=== PATIENT | female | born 1985 | race Caucasian/White ===

== ENCOUNTER 2025-04-20 02:15 | Observation (INO) | payer SELFPAY ==
[2025-04-20] VITALS (10 sets, daily range): BP systolic 97–162; BP diastolic 53–105; PULSE 60–122; RESP 15–20; TEMP 36.6–37.1; O2SAT 96–100; BMI 29.2
--- OUTSIDE RECORDS SUMMARY | 2025-04-20 02:22 | XMS_ITS | Encounter Summary ---
Author Organization Healthcare Address [address] [place] [address] Care Team Providers Care Capacitor Repairer Name Role Phone Jas Egan Primary Care Provider [phone] Shefali Miller APRN Primary Care Provider Araceli Abdi Unavailable Unavailable Debbi Gómez ICING COATER Unavailable Unavailable Summer Willis DO Primary Care Provider [phone] Encounter Details Date Type Department Care Team (Late st Contact Info) Description 12/05/2022 Community [facility] [address] [place] [address] Dany Osorio, SEA CAPTAIN [address] [place] [address] Amenorrhea (Primary Dx) Social History Tobacco Use Types Packs/Day Years Used Date Smoking Tobacco: Former Cigarettes Smokeless Tobacco: Never Alcohol Use Standard Drinks/Week Comments Yes 0 (1 standard drink = 0.6 oz pur e alcohol) socially CAGE ASSESSMENT Answer Date Recorded Cage unable to access Not on file 10/10/2022 Maximum number of drinks you had on a given occasion in the last month? 0 drinks 10/10/2022 How many alcoholic Beverages do you typically drink in a week? 0 - 7 per week 10/10/2022 Have you ever felt you should CUT down on your d rinking? 0 10/10/2022 Have you been ANNOYED by peo ple criticizing your drinking? 0 10/10/2022 Have you felt GUILTY about your drinking? 0 10/10/2022 Have you had a drink first t opal in the morning (EYE-OUTSOLE ROUNDER) to steady your nerves or to get rid of a hangover? 0 10/10/2022 CAGE Questionnaire Score 0 023 Comments Unknown Sex and Gender Information Value Date Recorded Sex Assigned at Not on file Legal Sex Female 8:21 PM EDT Gender Identity Not on file Sexual Orientation Not on file documented as of this encounter Plan of Treatment Not on file documented as of this encounter Visit Diagnoses Diagnosis Amenorrhea- Primary Absence of menstruation documented in this encounter Care Teams Capacitor Repairer Relationship Specialty Start Date End Date Jas Egan PA [address] [place] [address] PCP - General 12/06/22 07/28/24 Shefali Miller APRN [address] [place] [address] PCP - General Family Medicine 07/29/24 04/15/25 Summer Willis DO [address] [place] [address] PCP - General Family Medicine 04/16/25 05/18/25 Araceli Abdi Community Health Worker 07/29/2408/08 Debbi Gómez, [place] [address] Cocoa Mill Operator Electric Screw Driver Operator 07/01/23 12/28/24 documented as of this encounter
--- OUTSIDE RECORDS SUMMARY | 2025-04-20 02:22 | XMS_ITS | Encounter Summary ---
Author Organization Healthcare Address [address] [place] [address] Care Team Providers Care Nail Technician Name Role Phone Jas Egan Primary Care Provider Shefali Miller APRN Primary Care Provider Araceli Abdi Unavailable Unavailable Debbi GómezW Unavailable Unavailable Summer Willis DO Primary Care Provider [phone] Encounter Details Date Type Department Care Team (Late st Contact Info) Description 07/19/2022 Lab Requisition [facility] [address] [place] [address] Ryan Mason PA [address] [place] [address] Encounter for screening for COVID-19 Social History Tobacco Use Types Packs/Day Years Used Date Smoking Tobacco: Former Cigarettes Smokeless Tobacco: Never Alcohol Use Standard Drinks/Week Comments Yes 0 (1 standard drink = 0.6 oz pur e alcohol) socially Comments Unknown Sex and Gender Information Value Date Recorded Sex Assigned at Not on file Legal Sex Female 8:21 PM EDT Gender Identity Not on file Sexual Orientation Not on file COVID-19 Exposure Response Date Recorded In the last 10 days, have yo u been in contact with someone who was confirmed or suspected to have Coronavirus/COVID-19? No / Unsure 07/18/2022 4:30 AM EDT documented as of this encounter Plan of Treatment Not on file documented as of this encounter Procedures Procedure Name Priority Date/Time Associated Diagnosis Comments SARS COV-2/COVID-19 BY PCR - RAPID Routine 07/19/2022 4:50 PM EDT Encounter for screening for COVID-19 documented in this encounter Results * SARS CoV-2/COVID-19 by PCR - Rapid (07/19/2022 4:50 PM EDT) SARS CoV-2/COVID-1 9 RNA PCR Result Not Detected Not Detected 07/19/2022 9:06 PM EDT [facility] Swab Nasopharyngeal structure / Unknown 07/19/2022 4:50 PM EDT 07/19/2022 7:58 PM EDT Narrative [facility] - 07/19/2022 9:06 PM EDT This assay is for in vitro diagnostic use under FDA emergency use authorization only. Negative results do not preclude infection with the SARS CoV-2 virus and should not be the sole basis of a patient treatment/management or public health decision. Follow up testing should be performed according to the current CDC recommendations. This test was performed on the Xpert Xpress SARS CoV-2 test, a PCR-based method. Negative results should be considered presumptive and do not preclude current or future infection obtained through community transmission or other exposures. Negative results must be considered in the context of an individual's recent exposures, history, presence of clinical signs and symptoms consistent with COVID-19. [facility] MICROBIOLOGY - GENERAL ORDERABLES Final Result [facility] [address] [place] [address] documented in this encounter Visit Diagnoses Diagnosis Encounter for screening for COVID-19 documented in this encounter Care Teams Nail Technician Relationship Specialty Start Date End Date Jas Egan PA [address] [place] [address] PCP - General 12/06/22 07/28/24 Shefali Miller APRN [address] [place] [address] PCP - General Family Medicine 07/29/24 04/15/25 Summer Willis DO [address] [place] [address] PCP - General Family Medicine 04/16/25 05/18/25 Araceli Abdi Community Health Worker 07/29/2408/08 Debbi Gómez, [place] [address] Director Of Accounting Solder Cream Maker 07/01/23 12/28/24 documented as of this encounter
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
--- OUTSIDE RECORDS SUMMARY | 2025-04-20 02:22 | XMS_ITS | Encounter Summary ---
Author Organization Healthcare Address [address] [place] [address] Care Team Providers Care Golf Club Manager Name Role Phone Jas Egan Primary Care Provider [phone] Shefali Miller APRN Primary Care Provider Araceli Abdi Unavailable Unavailable Debbi GómezW Unavailable Unavailable Summer Willis DO Primary Care Provider [phone] Encounter Details Date Type Department Care Team (Late st Contact Info) Description 08/15/2022 Lab Requisition [facility] [address] [place] [id number] Atul Sanders DO [address] [place] [address] Routine general medical examination at a health care facility Social History Tobacco Use Types Packs/Day Years [...] as of this encounter Visit Diagnoses Diagnosis Routine general medical examination at a health care facility documented in this encounter Care Teams Golf Club Manager Relationship Specialty Start Date End Date Jas Egan PA [address] [place] [address] PCP - General 12/06/22 07/28/24 Shefali Millre APRN [address] [place] [address] PCP - General Family Medicine 07/29/24 04/15/25 Summer Willis DO [address] [place] [address] PCP - General Family Medicine 04/16/25 05/18/25 Araceli Abdi Community Health Worker 07/29/2408/08 Debbi Gómez, [place] [address] Histotechnologist Housekeeper Home 07/01/23 12/28/24 documented as of this encounter
--- OUTSIDE RECORDS SUMMARY | 2025-04-20 02:22 | XMS_ITS | Encounter Summary ---
Author Organization Healthcare Address [address] [place] [address] Care Team Providers Care Machine Engraver Name Role Phone Jas Egan Primary Care Provider [phone] Shefali Miller APRN Primary Care Provider Araceli Abdi Unavailable Unavailable Debbi GómezW Unavailable Unavailable Summer Willis DO Primary Care Provider [phone] Encounter Details Date Type Department Care Team (Late st Contact Info) Description 07/20/2022 Lab Requisition [facility] [address] [place] [id number] Efraín Tristan MD [address] [place] [address] Routine general medical examination at a health [...] Procedure Name Priority Date/Time Associated Diagnosis Comments HC RPR WITH REFLEX TO QUANT RPR AND CONFIRMATORY TREPONEMA PALLIDUM ABS(SO) Routine 07/20/2022 8:02 AM EDT Routine general medical examination at a health care facility [ICD-10-CM] HC (REFLEX) RPR ([facility] [id number]) Routine 07/20/2022 8:02 AM EDT Routine general medical examination at a health care facility [ICD-10-CM] HC TREPONEMA PALLIDIUM SCREEN CASACADE ([facility] [id number]) Routine 07/20/2022 8:02 AM EDT Routine general medical examination at a health care facility [ICD-10-CM] HEPATITIS C VIRUS (HCV) QUANTITATIVE PCR Routine 07/20/2022 8:02 AM EDT Routine general medical examination at a health care facility [ICD-10-CM] HIV 1/2 ANTIBODY/ANTIGEN SCREEN WITH REFLEX TO HIV I/II DIFFERENTIATION Routine 07/20/2022 8:02 AM EDT Routine general medical examination at a health care facility [ICD-10-CM] ACUTE HEPATITIS PANEL Routine 07/20/2022 8:02 AM EDT Routine general medical examination at a health care facility [ICD-10-CM] CBC WITH AUTO DIFFERENTIAL Routine 07/20/2022 8:02 AM EDT Routine general medical examination at a health care facility [ICD-10-CM] C-REACTIVE PROTEIN, PLASMA Routine 07/20/2022 8:02 AM EDT Routine general medical examination at a health care facility [ICD-10-CM] HEMOGLOBIN A1C Routine 07/20/2022 8:02 AM EDT Routine general medical examination at a health care facility [ICD-10-CM] LIPID PROFILE, PLASMA Routine 07/20/2022 8:02 AM EDT Routine general medical examination at a health care facility [ICD-10-CM] COMPREHENSIVE METABOLIC PANEL, PLASMA Routine 07/20/2022 8:02 AM EDT Routine general medical examination at a health care facility [ICD-10-CM] documented in this encounter Results * (ABNORMAL) RPR, Quant (Reflex) (07/20/2022 8:02 AM EDT) RPR, QUANT 1:32(H) NonRea<1:1 07/23/2022 7:08 AM EDT [facility] (BEAKER) Blood Venous blood specimen / Unknown Venipuncture / Unknown 07/20/2022 8:02 AM EDT 07/20/2022 8:44 AM EDT Narrative [facility] (BEAKER) - 07/23/2022 7:08 AM EDT Performed at: 01 - [address] [id number] In Flight Refueling Craftsman: Diane Ledesma MD, Phone: [phone] Efraín Tristan MD LAB REF LAB BLOOD AND FLUID ORD Final Result Performing Organization Address [facility] de Phone Number [facility] (Apokalyyis) * (ABNORMAL) RPR Reflex only (07/20/2022 8:02 AM EDT) RPR reflex Reactive(A ) Non Reactive 07/23/2022 7:08 AM EDT [facility] (BEAKER) Blood Venous blood specimen / Unknown Venipuncture / Unknown 07/20/2022 8:02 AM EDT 07/20/2022 8:44 AM EDT Narrative [facility] (BEAKER) - 07/23/2022 7:08 AM EDT Performed at: 01 - [address] [id number] In Flight Refueling Craftsman: Diane Ledesma MD, Phone: [phone] Efraín Tristan MD LAB REF LAB BLOOD AND FLUID ORD Final Result Performing Organization Address [facility] de Phone Number [facility] ([facility]) * (ABNORMAL) Hepatitis C Virus (HCV) Quantitative PCR (07/20/2022 8:02 AM EDT) [facility] Hepatitis C Virus (HCV) Quantitative Interpretation Detected( A) Not Detected. 07/21/2022 6:12 AM EDT [facility] Hepatitis C Virus (HCV) Quantitative Viral Load Log Result 6.60 <1.08 log10 IU/mL 07/21/2022 6:12 AM EDT [facility] Hepatitis C Virus (HCV) Quantitative IU/mL Result 3,982,626 <12 IU/mL 07/21/2022 6:12 AM EDT [facility] Blood Venous blood specimen / Unknown Venipuncture / Unknown 07/20/2022 8:02 AM EDT 07/20/2022 8:39 AM EDT Narrative [facility] - 07/21/2022 6:12 AM EDT The [employer] M2000 HCV test is a Real Time in vitro nucleic acid amplification test for the quantitation of Hepatitis C Viral (HCV) RNA in human serum in HCV-infected individuals. It is intended for use as an aid in the management of HCV-infected individuals undergoing anti-viral therapy. The dynamic range for this test is log10 = 1.08 to 8.00 and/or 12 to 100,000,000 IU/mL. The limit of detection (LOD) for this assay is 12 IU/mL and the limit of quantitation (LOQ) is 12 IU/mL. This assay is FDA approved for clinical use. Efraín Tristan MD LAB BLOOD ORDERABLES Final Result Performing Organization Address City/[facility]/ZIP Co de Phone Number [facility] [address] [place] [id number] * HIV 1 & 2 Antibody/Antigen Screen (07/20/2022 8:02 AM EDT) [facility] HIV 1 & 2 Antibody/Anti gen Screen Nonreactive Nonreactive 07/20/2022 11:10 AM EDT [facility] Blood Venous blood specimen / Unknown Venipuncture / Unknown 07/20/2022 8:02 AM EDT 07/20/2022 8:39 AM EDT Efraín Tristan MD LAB BLOOD ORDERABLES Final Result [facility] [address] [place] [address] * (ABNORMAL) Treponema pallidum (Syphilis) Screening [place] (07/20/2022 8:02 AM EDT) [facility] T pallidum Antibodies Reactive( A) Non Reactive 07/23/2022 7:08 AM EDT [facility] (IONA) Blood Venous blood specimen / Unknown Venipuncture / Unknown 07/20/2022 8:02 AM EDT 07/20/2022 8:44 AM EDT Narrative [facility] (ION[facility]) - 07/23/2022 7:08 AM EDT Performed at: - [address] [id number] In Flight Refueling Craftsman: Diane Ledesma MD, Phone: [phone] Efraín Tristan MD LAB REF LAB BLOOD AND FLUID ORD Final Result [facility] ([facility]) * (ABNORMAL) CBC and Differential (07/20/2022 8:02 AM EDT) [facility] WBC Count 6.87 3.70 - 10.30 10*3/uL LAB HEMATOLOGY METHOD 07/20/2022 10:19 AM EDT [facility] RBC Count 4.21 3.90 - 5.20 10*6/uL LAB HEMATOLOGY METHOD 07/20/2022 10:19 AM EDT [facility] HGB 12.1 11.2 - 15.7 g/dL LAB HEMATOLOGY METHOD 07/20/2022 10:19 AM EDT [facility] HCT 38.7 34.0 - 45.0 % LAB HEMATOLOGY METHOD 07/20/2022 10:19 AM EDT [facility] Platelet Count 276 155 - 369 10*3/uL LAB HEMATOLOGY METHOD 07/20/2022 10:19 AM EDT [facility] MCV 92 79 - 98 fL LAB HEMATOLOGY METHOD 07/20/2022 10:19 AM EDT [facility] MCH 28.7 26.0 - 32.0 pg LAB HEMATOLOGY METHOD 07/20/2022 10:19 AM EDT [facility] MCHC 31.3 30.7 - 35.5 g/dL LAB HEMATOLOGY METHOD 07/20/2022 10:19 AM [facility] RDW 15.0(H) 11.5 - 14.5 % LAB HEMATOLOGY METHOD 07/20/2022 10:19 AM EDT [facility] MPV 11.7 8.8 - 12.5 fL LAB HEMATOLOGY METHOD 07/20/2022 10:19 AM EDT [facility] nRBC 0.0 <=0.0 per 100 WBCs LAB HEMATOLOGY METHOD 07/20/2022 10:19 AM EDT [facility] Differential Type Automated LAB HEMATOLOGY METHOD 07/20/2022 10:19 AM T [facility] Neutrophils % 68.0 % LAB HEMATOLOGY METHOD 07/20/2022 10:19 AM EDT [facility] Lymphocytes % 16.0 % LAB HEMATOLOGY METHOD 07/20/2022 10:19 AM [facility] Monocytes % 11.0 % LAB HEMATOLOGY METHOD 07/20/2022 10:19 AM T [facility] Eosinophils % 4.0 % LAB HEMATOLOGY METHOD 07/20/2022 10:19 AM [facility] Basophils % 1.0 % LAB HEMATOLOGY METHOD 07/20/2022 10:19 AM [facility] Immature Granulocytes % 0.0 % LAB HEMATOLOGY METHOD 07/20/2022 10:19 AM [facility] Neutrophils Absolute 4.68 1.60 - 6.10 10*3/uL LAB HEMATOLOGY METHOD 07/20/2022 10:19 AM [facility] Lymphocytes Absolute 1.08(L) 1.20 - 3.90 10*3/uL LAB HEMATOLOGY METHOD 07/20/2022 10:19 AM T [facility] Monocytes Absolute 0.77 0.30 - 0.90 10*3/uL LAB HEMATOLOGY METHOD 07/20/2022 10:19 AM T [facility] Eosinophils Absolute 0.27 0.00 - 0.50 10*3/uL LAB HEMATOLOGY METHOD 07/20/2022 10:19 AM T [facility] Basophils Absolute 0.06 0.00 - 0.10 10*3/uL LAB HEMATOLOGY METHOD 07/20/2022 10:19 AM EDT [facility] Immature Granulocytes Absolute 0.01 0.00 - 0.06 10*3/uL LAB HEMATOLOGY METHOD 07/20/2022 10:19 AM T [facility] Blood Venous blood specimen / Unknown Venipuncture / Unknown 07/20/2022 8:02 AM EDT 07/20/2022 8:32 AM EDT Narrative [facility] - 07/20/2022 10:19 AM EDT Therapeutic decision making should be based on absolute values, rather than percentages. Efraín Tristan MD LAB BLOOD ORDERABLES Final Result Performing Organization Address City/[facility]/ZIP Co de Phone Number [facility] [address] [place] [address] * Hemoglobin A1c (07/20/2022 8:02 AM EDT) Hemoglobin A1c 5.4 <5.7 % 07/20/2022 10:33 AM EDT [facility] Blood Venous blood specimen / Unknown Venipuncture / Unknown 07/20/2022 8:02 AM EDT 07/20/2022 8:32 AM EDT Narrative [facility] - 07/20/2022 10:33 AM EDT HA1C Interpretive Data: Diagnosis of Diabetes: Diabetic > or = 6.5% Pre-diabetic 5.7 to 6.4% Non-diabetic < or = 5.6% Glycemic Targets for Type I and Type II Diabetics: Non- Adults <7.0% Adults <6.0% Children and Adolescents <7.5% Source: [place] [employer]. Standards of medical care in diabetes,2017. Diabetes Care.2017:40 (suppl 1):S1-S135. HbA1c assay performed by an ion-exchange chromatography method that is certified traceable to the DCCT. Efraín Tristan MD LAB BLOOD ORDERABLES Final Result [facility] [address] [place] [address] * C-reactive protein (07/20/2022 8:02 AM EDT) CRP, Plasma 4.7 <=8.0 mg/L 07/20/2022 9:54 AM EDT [facility] Blood Venous blood specimen / Unknown Venipuncture / Unknown 07/20/2022 8:02 AM EDT 07/20/2022 8:31 AM EDT Narrative [facility] - 07/20/2022 9:54 AM EDT This CRP test is appropriate for assessment of infection, systemic inflammation and/or tissue injury. To assess cardiovascular disease risk order high sensitivity CRP (CRPH). Efraín Tristan MD LAB BLOOD ORDERABLES Final Result [facility] [address] [place] [address] * (ABNORMAL) Lipid panel (07/20/2022 8:02 AM EDT) Fasting greater than or equal to 8 hours? No 07/20/2022 9:54 AM EDT [facility] Comment:unknown fasting Cholesterol, Plasma 149 <200 mg/dL 07/20/2022 9:54 AM EDT [facility] Comment: Cholesterol Reference Range (age >17 years): Desirable <200 mg/dL Borderline 200 to 239 mg/dL Undesirable >239 mg/dL HDL 46(L) >=50 mg/dL 07/20/2022 9:54 AM EDT [facility] Comment: HDL Cholesterol Reference Ranges (age >17 years): Female, acceptable > or = 50 mg/dL Male, acceptable > or = 40 mg/dL Triglycerides, Plasma 71 <150 mg/dL 07/20/2022 9:54 AM EDT [facility] Comment: Triglyceride Reference Range (age >17 years): Desirable: <150 mg/dL Borderline high: 150 to 199 mg/dL High: 200 to 499 mg/dL Very high: >499 mg/dL Increased risk of pancreatitis: >1000 mg/dL Cholesterol/HDL Ratio 3 07/20/2022 9:54 AM EDT [facility] LDL, Calculated 88.8 <100 mg/dL 9:54 AM EDT [facility] Comment: LDL Cholesterol Reference Range (age >17 years): Optimal: <100 mg/dL Near or above optimal: 100 - 129 mg/dL Borderline high: 130 - 159 mg/dL High: 160 - 189 mg/dL Very high: >189 mg/dL LDL Cholesterol Reference Range (age <18 years): Desirable: <110 mg/dL Borderline: 110 - 129 mg/dL Undesirable: >130 mg/dL Blood Venous blood specimen / Unknown Venipuncture / Unknown 07/20/2022 8:02 AM EDT 07/20/2022 8:31 AM EDT Efraín Tristan MD LAB BLOOD ORDERABLES Final Result [facility] [address] [place] [address] * (ABNORMAL) Comprehensive metabolic panel (07/20/2022 8:02 AM EDT) [facility] Glucose, Plasma 129(H) 74 - 99 mg/dL 07/20/2022 9:54 AM EDT [facility] BUN, Plasma 4(L) 7 - 21 mg/dL 07/20/2022 9:54 AM EDT [facility] Creatinine, Plasma 0.53(L) 0.60 - 1.10 mg/dL 07/20/2022 9:54 AM EDT [facility] BUN/Creatinine Ratio 8 07/20/2022 9:54 AM EDT [facility] Sodium, Plasma 139 136 - 145 mmol/L 07/20/2022 9:54 AM EDT [facility] Potassium, Plasma 4.0 3.7 - 4.8 mmol/L 07/20/2022 9:54 AM EDT [facility] Comment:Reference range for Serum potassium is 0.2 to 0.5 mmol/L higher than Plasma range. Chloride, Plasma 105 97 - 107 mmol/L 07/20/2022 9:54 AM EDT [facility] CO2, Plasma 26 22 - 29 mmol/L 07/20/2022 9:54 AM EDT [facility] Anion Gap 8 6 - 16 mmol/L 07/20/2022 9:54 AM EDT [facility] Total Calcium, Plasma 8.6(L) 8.9 - 10.2 mg/dL 07/20/2022 9:54 AM EDT [facility] Total Protein 7.0 6.3 - 7.9 g/dL 07/20/2022 9:54 AM EDT [facility] Albumin, Plasma 3.4(L) 3.5 - 5.2 g/dL 07/20/2022 9:54 AM EDT [facility] AST, Plasma 40(H) 11 - 32 U/L 07/20/2022 9:54 AM EDT [facility] ALT, Plasma 41(H) 8 - 33 U/L 07/20/2022 9:54 AM EDT [facility] Alkaline Phosphatase, Plasma 98 35 - 104 U/L 07/20/2022 9:54 AM EDT [facility] Total Bilirubin, Plasma 0.3 0.2 - 1.1 mg/dL 07/20/2022 9:54 AM EDT [facility] eGFRcr 121.6 mL/min/1.7 3m*2 07/20/2022 9:54 AM EDT [facility] Comment: Reported eGFRcr in mL/min/1.73m2 is based the CKD-EPI 202 equation that does not use a race coefficient. Effective 05/04/22 our laboratory changed the eGFR calculation to the CKD-EPI 2020 equation from the previously reported eGFR, based on the MDRD equation. For comparisons between the two equations, please see laboratory website: [email or web address] Blood Venous blood specimen / Unknown Venipuncture / Unknown 07/20/2022 8:02 AM EDT 07/20/2022 8:31 AM EDT Efraín Tristan MD LAB BLOOD ORDERABLES Final Result [facility] [address] [place] [address] * (ABNORMAL) Hepatitis panel, acute (07/20/2022 8:02 AM EDT) Hepatitis B Surf Antigen Negative Negative 07/20/2022 12:10 PM EDT [facility] Hepatitis C Antibody Positive(A) Negative 07/20/2022 12:10 PM EDT [facility] Comment: This specimen is being sent for confirmation by RT-PCR. This specimen is being sent for confirmation by RT-PCR. Hepatitis A Antibody IgM Negative Negative 07/20/2022 12:10 PM EDT [facility] Hepatitis B Core Antibody IgM Negative Negative 07/20/2022 12:10 PM EDT [facility] Blood Venous blood specimen / Unknown Venipuncture / Unknown 07/20/2022 8:02 AM EDT 07/20/2022 8:39 AM EDT us Efraín Tristan MD LAB BLOOD ORDERABLES Final Result [facility] [address] [place] [id number] documented in this encounter Visit Diagnoses Diagnosis Routine general medical examination at a health care facility documented in this encounter Care Teams Machine Engraver Relationship Specialty Start Date End Date Jas Egan PA [address] [place] [address] PCP - General 12/06/22 07/28/24 Shefali Miller, KATHY [address] [place] [address] PCP - General Family Medicine 07/29/24 04/15/25 Summer Willis DO [address] [place] [address] PCP - General Family Medicine 04/16/25 05/18/25 Araceli Abdi Community Health Worker 07/29/2408/08 Debbi Gómez, [place] [address] School Bus Dispatcher Corsetier 07/01/23 12/28/24 documented as of this encounter
--- OUTSIDE RECORDS SUMMARY | 2025-04-20 02:22 | XMS_ITS ---
Author Organization [facility] Address [address] [place] [address] Care Team Providers Care Gaming Floor Supervisor Name Role Phone Summer Willis DO Primary Care Provider [phone] Hepatitis C Program Status:Paused (Paused) Start date:07/01/2023 Enrollment date:07/01/2023 Enrollment reason:HCV Continued Care and Services Coordination
--- OUTSIDE RECORDS SUMMARY | 2025-04-20 02:22 | XMS_ITS | Encounter Summary ---
Author Organization Healthcare Address [address] [place] [address] Care Team Providers Care Warehouse Operator Name Role Phone Jas Egan Primary Care Provider [phone] Shefali Miller APRN Primary Care Provider Araceli Abdi Unavailable Unavailable Debbi Gómez EDITORIAL SPECIALIST Unavailable Unavailable Summer Willis DO Primary Care Provider [phone] Encounter Details Date Type Department Care Team (Late st Contact Info) Description 12/02/2022 Community [facility] [address] [place] [address] Dany Osorio, HELP DESK REPRESENTATIVE [id number] [place] [address] Bilateral carpal tunnel syndrome (Primary Dx) Social History Tobacco Use Types [...] drink first t opal in the morning (EYE-SPOT WASHER) to steady your nerves or to get [...] as of this encounter Visit Diagnoses Diagnosis Bilateral carpal tunnel syndrome- Primary Carpal tunnel syndrome documented in this encounter Care Teams Warehouse Operator Relationship Specialty Start Date End Date Jas Egan PA [address] [place] [address] PCP - General 12/06/22 07/28/24 Shefali Miller APRN [address] [place] [address] PCP - General Family Medicine 07/29/24 04/15/25 Summer Willis DO [address] [place] [address] PCP - General Family Medicine 04/16/25 05/18/25 Araceli Abdi Community Health Worker 07/29/2408/08 Debbi Gómez, [place] [address] Transit Survey Worker Forensic Psychiatrist 07/01/23 12/28/24 documented as of this encounter
--- OUTSIDE RECORDS SUMMARY | 2025-04-20 02:22 | XMS_ITS | Encounter Summary ---
Author Organization Healthcare Address [address] [place] [address] Care Team Providers Care Labour Market Economist Name Role Phone Jas Egan Primary Care Provider [phone] Shefali Miller APRN Primary Care Provider Araceli Abdi Unavailable Unavailable Debbi GómezW Unavailable Unavailable Summer Willis DO Primary Care Provider [phone] Encounter Details Date Type Department Care Team (Late st Contact Info) Description 08/16/2022 Lab Requisition [facility] [address] [place] [id number] Atul Sanders DO [address] [place] [address] Routine general medical examination at [...] facility documented in this encounter Care Teams Labour Market Economist Relationship Specialty Start Date End Date Jas Egan PA [address] [place] [address] PCP - General 12/06/22 07/28/24 Shefali Miller APRN [address] [place] [address] PCP - General Family Medicine 07/29/24 04/15/25 Summer Willis DO [address] [place] [address] PCP - General Family Medicine 04/16/25 05/18/25 Araceli Abdi Community Health Worker 07/29/2408/08 Debbi Gómez, [place] [address] Commutator Inspector Duty Engineer 07/01/23 12/28/24 documented as of this encounter
--- OUTSIDE RECORDS SUMMARY | 2025-04-20 02:22 | XMS_ITS | Encounter Summary ---
Author Organization Healthcare Address [address] [place] [address] Care Team Providers Care Bottle Booth Attendant Name Role Phone Jas Egan Primary Care Provider [phone] Shefali Miller APRN Primary Care Provider Araceli Abdi Unavailable Unavailable Debbi GómezW Unavailable Unavailable Summer Willis DO Primary Care Provider [phone] Encounter Details Date Type Department Care Team (Late st Contact Info) Description 08/13/2022 Lab Requisition [facility] [address] [place] [address] Atul Sanders DO [address] [place] [address] Encounter for screening for COVID-19 [...] SARS COV-2/COVID-19 BY PCR - RAPID Routine 08/13/2022 9:24 AM EDT Encounter for screening for COVID-19 documented in this encounter Results * SARS CoV-2/COVID-19 by PCR - Rapid (08/13/2022 9:24 AM EDT) SARS CoV-2/COVID-1 9 RNA PCR Result Not Detected Not Detected 08/13/2022 1:58 PM EDT [facility] Swab Nasopharyngeal structure / Unknown 08/13/2022 9:24 AM EDT 08/13/2022 1:01 PM EDT Narrative [facility] - 08/13/2022 1:58 PM EDT This assay is for in [...] clinical signs and symptoms consistent with COVID-19. Atul Sanders DO LAB MICROBIOLOGY - GENERAL ORDERABLES Final Result [facility] [address] [place] [address] documented in this encounter Visit Diagnoses Diagnosis Encounter for screening for COVID-19 documented in this encounter Care Teams Bottle Booth Attendant Relationship Specialty Start Date End Date Jas Egan PA [address] [place] [address] PCP - General 12/06/22 07/28/24 Shefali Miller APRN [address] [place] [address] PCP - General Family Medicine 07/29/24 04/15/25 Summer Willis DO [address] [place] [address] PCP - General Family Medicine 04/16/25 05/18/25 Araceli Abdi Community Health Worker 07/29/2408/08 Debbi Gómez, [place] [address] Pump Installation And Servicer Agricultural Extension Educator 07/01/23 12/28/24 documented as of this encounter
--- NOTE | 2025-04-20 03:05 | XR_ITS ---
PROCEDURE INFORMATION: Exam: XR Chest Exam date and time: 04/20/2025 3:42 AM Age: 39 years old Clinical indication: Other: AMS TECHNIQUE: Imaging protocol: Radiologic exam of the chest. Views: 1 view. COMPARISON: No relevant prior studies available. FINDINGS: Lungs: Unremarkable. No consolidation. Pleural spaces: Unremarkable. No pleural effusion. No pneumothorax. Heart/Mediastinum: Unremarkable. No cardiomegaly. Bones/joints: Unremarkable. IMPRESSION: No acute findings.
--- NOTE | 2025-04-20 03:05 | CT_ITS ---
PROCEDURE INFORMATION: Exam: CT Head Without Contrast Exam date and time: 04/20/2025 4:06 AM Age: 39 years old Clinical indication: Altered mental status/memory loss; Additional info: Ams/meth TECHNIQUE: Imaging protocol: Computed tomography of the head without contrast. Radiation optimization: All CT scans at this facility use at least one of these dose optimization techniques: automated exposure control; mA and/or kV adjustment per patient size (includes targeted exams where dose is matched to clinical indication); or iterative reconstruction. COMPARISON: No relevant prior studies available. FINDINGS: Brain: Normal. No hemorrhage. Unremarkable white matter. No mass effect. Cerebral ventricles: No ventriculomegaly. Paranasal sinuses: Visualized sinuses are unremarkable. No fluid levels. Mastoid air cells: Visualized mastoid air cells are well aerated. Bones: Unremarkable. No acute fracture. Soft tissues: Unremarkable. IMPRESSION: No acute intracranial abnormality.
[2025-04-20] MEDS: HALOPERIDOL LACTATE 5 MG/ML VIAL IM (03:16)
[2025-04-20] MEDS: MIDAZOLAM 5MG/ML 1ML VIAL 5 MG IM (03:17)
--- NOTE | 2025-04-20 03:34 | ECG_ITS ---
APPROVED REPORT Exam: Resting ECG HR:87 bpm ECG Measurements Heart Rate 87 AXES OK 134 P 77 QRSd 81 QRS 89 QT 410 T 60 QTc 455 Conclusion SINUS RHYTHM NORMAL ECG Electronically signed by : JLUIS LYONS, 04/21/2025 23:02:33
[2025-04-20] MEDS: LACTATED RINGERS 1000ML 1,000 ML 999 ML IV (03:35)
[2025-04-20 03:40] LABS: Hematocrit 36.7 % (37.0-47.0); Hemoglobin 13.3 g/dL (12.2-16.2); Immature Granulocytes % 0.2 %; Mean Corpuscular HGB Conc 36.2 g/dL (31.8-35.4); Mean Corpuscular Hemoglobin 31.7 pg (27.0-31.2); Mean Corpuscular Volume 87.6 fl (81-99); Nucleated Red Blood Cells % 0 %; Platelet Count 170 K/mm3 (142-424); Red Blood Count 4.19 M/mm3 (4.20-5.40); Red Cell Distribution Width-SD 37.4 fL; White Blood Count 6.3 K/mm3 (4.8-10.8)
[2025-04-20 03:43] LABS: Albumin Level 4.6 g/dl (3.5-5.0); Chloride 98 mmol/L (98-107); Sodium 136 mmol/L (136-145)
[2025-04-20 03:44] LABS: Lactate Venous 1.5 mmol/L (0.4-2.0); VBG HCO3 24.2 mmol/L (23-30); VBG PCO2 39.2 mmol/L (35-51); VBG PH 7.41 mmol/L (7.31-7.41); VBG PO2 126.4 mmol/L (28-40)
[2025-04-20 03:45] LABS: Microscopic, Urine URINE MICROSCOPIC (MICROSCOPIC)
[2025-04-20 03:46] LABS: Alanine Aminotransferase 67 U/L (12-78); Albumin/Globulin Ratio 1.4 (1.1-1.8); Alkaline Phosphatase 83 U/L (38-126); Anion Gap 15.4 mEq/L (5-15); Aspartate Amino Transferase 60 U/L (14-36); Bilirubin,Total 0.6 mg/dl (0.2-1.3); Blood Urea Nitrogen 13 mg/dl (7-17); Carbon Dioxide 25 mmol/L (22.0-30.0); Creatine Kinase 226 U/L (30-135); Creatinine Clearance Estimated 125 mL/min (50-200); Creatinine,Serum 0.70 mg/dl (0.52-1.04); Estimated Glomerular Filt Rate 92 ml/min (>60); GFR (African American) 112 ML/MIN (>60); Globulin 3.3 g/dL (1.3-3.2); Potassium 2.4 mmoL/L (3.5-5.1); Total Protein,Serum 7.9 g/dl (6.3-8.2)
[2025-04-20 03:47] LABS: Calcium 8.7 mg/dl (8.4-10.2); Glucose 152 mg/dl (74-100)
[2025-04-20 03:48] LABS: Acetaminophen < 10 ug/ml (10-30); Salicylate < 1.0 mg/dL (2.0-20.0)
[2025-04-20 03:53] LABS: Color,Urine YELLOW (Yellow); Glucose,Urine (UA) Negative (Negative); Ketones,Urine TRACE (Negative); Leukocyte Esterase,Urine TRACE (Negative); PH,Urine 6.0 (5.0-8.5); Protein,Urine 1+ (Negative); Specific Gravity, Urine 1.025 (1.005-1.030); Urobilinogen,Urine >=8.0 EU/dl (0.2)
[2025-04-20 03:56] LABS: Bilirubin,Urine 1+ (Negative)
[2025-04-20 03:57] LABS: HCG Qualitative, Serum Negative (Negative)
[2025-04-20 03:58] LABS: Troponin I < 0.01 ng/ml (0.00-0.034)
[2025-04-20 04:05] LABS: Barbiturates Screen,Urine Negative ng/ml (<200); Benzodiazepines Screen,Urine Negative ng/ml (<200)
[2025-04-20 04:08] LABS: Methadone Screen,Urine Negative ng/ml (<300)
[2025-04-20 04:09] LABS: Opiate Screen,Urine Negative ng/ml (<300); Phencyclidine Screen,Urine Negative ng/ml (<25)
--- NOTE | 2025-04-20 04:11 | PC.NURSE ---
MD Rios and Kaykay HACKETT called to CT because PT appears to have something in her bra that obscures ct
[2025-04-20 04:15] LABS: Bacteria,Urine Trace /lpf
--- NOTE | 2025-04-20 04:15 | HMH.EDGENADL ---
Discharge Plan Disposition Patient Disposition: Admitted Condition: Good Chief Complaint: Medical Clearance Clinical Impressions Clinical Impression: Polysubstance abuse, Altered mental status, Hypokalemia Discharge ED Provider: Princess Rios Adult HPI General Chief complaint: Medical Clearance Stated complaint: medical clearance Time Seen by Provider: 04/20/25 03:00 Mode of Arrival: Ambulatory Source of Information: Patient and Law Enforcement Description of Symptoms (Recalled from ER Triage Doc. by RN): pt reports to the ED for medical clearance for incarceration. pt behavior was uncooperative and chaotic during triage. pt refused to answer most questions asked. History of Present Illness HPI narrative: 39-year-old female presents to the ER with law enforcement who is requesting medical clearance for incarceration. Patient is uncooperative, tangential, agitated, combative. According to law enforcement, she told them that she drink 1 beer and used a line of meth. Reportedly she snorts it. Patient is extremely agitated, flailing her arms and legs, responding to internal stimuli, she only occasionally answers my questions, reports no pain but otherwise is not able to give me additional history. Related Data Allergies Allergy/AdvReac Type Severity Reaction Status Date / Time No Known Allergies Allergy Verified 04/20/25 03:15 [facility] Disclaimer: The information contained in this section may have been updated after the patient was seen, as this information can be updated by other users. Medical History (Updated 04/20/25 @ 06:02 by Princess Rios MD) Drug abuse Social History (Updated 04/20/25 @ 05:20 by Santhosh Taylor APRN) Smoking Status: Unknown if ever smoked alcohol intake: current current occupational status: other Travel in the last 8 weeks?: None ROS Obtained: Yes unobtainable due to mental status Physical Exam General General appearance: alert and appears intoxicated Comment: Extremely agitated, not able to be redirected, flailing her arms and legs, combative, responding to internal stimuli Head Head exam: atraumatic and normocephalic Eye Eye exam: Present PERRL, EOMI and other (Heterochromia right eye); Absent jaundice or conjunctival injection ENT ENT exam: Present mucous membranes moist Neck Neck exam: Present normal inspection and full ROM Chest Chest inspection: Present symmetric chest wall rise Respiratory Respiratory exam: Present normal lung sounds bilaterally; Absent respiratory distress, wheezes or stridor Cardiovascular Cardiovascular exam: Present normal rhythm and tachycardia Abdominal Exam Abdominal exam: Present soft; Absent distention External exam: Present other (Tampon in place, removed.) Extremities Exam Extremities exam: Present full ROM; Absent edema Back Exam Back exam: Present full ROM Neurological Exam Neurological exam: Present alert and other (Very limited neurologic exam because of patient's agitation, combativeness, but she is moving all arms and legs equally and does not appear to have any motor deficits, no facial droop); Absent oriented X3 (Patient has only accurately answered that she is in the hospital, will not otherwise answer questions) Psychiatric Psychiatric exam: Present agitated (Combative, responding to internal stimuli and carrying on multiple conversations with herself about multiple different topics. She also stated that she wanted to drink God's water from the sink in the hospital ) Skin Skin exam: Present warm and dry Medical Decision Making Medical Records Medical records reviewed: Yes I reviewed the patient's medical records. Screening: Per USPSTF and CDC recommendations, given the prevalence of disease in our region, it is our hospital?s policy to screen for HIV and viral Hepatitis for all patients aged 18 and over and those with ongoing risk factors. Irvin Inquiry Pt receiving controlled substance: No Vital Signs: 04/20/25 02:25 04/20/25 03:33 04/20/25 04:00 Temperature 98.1 F Temperature Source Axillary Pulse Rate 87 95 H Pulse Rate [Right] 122 H Respiratory Rate 20 Blood Pressure 108/71 L 117/83 Blood Pressure [Right Arm] 162/105 H Blood Pressure Mean [Right Arm] 124 02 Sat by Pulse Oximetry 96 97 97 Lab Data Lab Results 04/20/25 03:05: VBG pH 7.41, VBG pCO2 39.2, VBG pO2 126.4 H, VBG HCO3 24.2, VBG Total CO2 25.4, VBG O2 Saturation 98.5 H, VBG Base Excess -0.5, VBG Lactic Acid 1.5 04/20/25 03:31: WBC 6.3, RBC 4.19 L, Hgb 13.3, Hct 36.7 L, MCV 87.6, MCH 31.7 H, MCHC 36.2 H, RDW 11.7, Plt Count 170, MPV 11.6 H, Neut % (Auto) 62.2, Lymph % (Auto) 27.7, [place] % (Auto) 7.4, Eos % (Auto) 1.9, Baso % (Auto) 0.6, Neut # (Auto) 3.9, Lymph # (Auto) 1.8, [place] # (Auto) 0.5, Eos # (Auto) 0.1, Baso # (Auto) 0.0, Sodium 136, Potassium 2.4 L*, Chloride 98, Carbon Dioxide 25, Anion Gap 15.4 H, BUN 13, Creatinine 0.70, Estimated Creat Clear 125, Estimated GFR 92, Est GFR ( Amer) 112, Glucose 152 H, Calcium 8.7, Total Bilirubin 0.6, AST 60 H, ALT 67, Alkaline Phosphatase 83, Total Creatine Kinase 226 H, Troponin I < 0.01, Total Protein 7.9, Albumin 4.6, Globulin 3.3 H, Albumin/Globulin Ratio 1.4, Serum HCG, Qual Negative, Salicylates < 1.0 L, Acetaminophen < 10 L, Plasma/Serum Alcohol < 10 04/20/25 03:40: Urine Color Yellow, Urine Appearance Clear, Urine pH 6.0, Ur Specific [place] 1.025, Urine Protein 1+ A, Urine Glucose (UA) Negative, Urine Ketones Trace, Urine Blood Negative, Urine Nitrate Positive A, Urine Bilirubin 1+ A, Urine Urobilinogen >=8.0, Ur Leukocyte Esterase Trace, Urine RBC None, Urine WBC 5-10, Ur Squamous Epith Cells 5-10, Urine Bacteria Trace, Urine Opiates Screen Negative, Urine Methadone Screen Negative, Ur Barbituates Screen Negative, Ur Phencyclidine Scrn Negative, Ur Amphetamines Screen TNP, U Benzodiazepines Scrn Negative, Urine Cocaine Screen Positive H, U Marijuana (THC) Screen Negative 04/20/25 03:31 04/20/25 03:31 Orders (Tests/Meds): ED MEDICATIONS Generic Name Dose Route Start Last Admin Trade Name Freq PRN Reason Stop Dose Admin Acetaminophen 650 mg 04/20/25 04:46 Acetaminophen 325mg Tab PO 05/20/25 04:45 Q4HP PRN Fever or Mild Pain (1-3) Haloperidol 5 mg 04/20/25 04:50 Haloperidol 5 Mg Tablet PO 05/20/25 04:49 BIDP PRN Agitation Haloperidol Lactate 5 mg 04/20/25 04:50 Haloperidol Lactate 5 Mg/Ml Vial IM 05/20/25 04:49 Q4HP PRN Agitation Potassium Chloride/Water 100 mls @ 50 mls/hr 04/20/25 03:47 04/20/25 03:53 Potassium Chloride 20meq/100ml Ivpb IV 04/20/25 05:46 50 mls/hr ONCE ONE Administration Midazolam HCl 5 mg 04/20/25 04:50 Midazolam 5mg/Ml 1ml Vial IM 05/20/25 04:49 Q6 PRN Agitation Midazolam HCl 5 mg 04/20/25 04:50 Midazolam 10mg/5ml Syrup 5ml Udc PO 05/20/25 04:59 Q6 PRN Agitation Ondansetron HCl 4 mg 04/20/25 04:46 Ondansetron 4mg/2ml Vial IV 05/20/25 04:45 Q8HP PRN Nausea Discontinued Medications Generic Name Dose Route Start Last Admin Trade Name Freq PRN Reason Stop Dose Admin Haloperidol Lactate 5 mg 04/20/25 03:05 04/20/25 03:16 Haloperidol Lactate 5 Mg/Ml Vial IM 04/20/25 03:06 5 mg ONCE ONE Administration Lactated Ringer's 1,000 mls @ 999 mls/hr 04/20/25 03:05 04/20/25 03:35 Lactated Ringer's 1000 Ml Bag IV 04/20/25 04:05 999 mls/hr .Q1H1M ONE Administration Midazolam HCl 5 mg 04/20/25 03:05 04/20/25 03:17 Midazolam 5mg/Ml 1ml Vial IM 04/20/25 03:06 5 mg ONCE ONE Administration Midazolam HCl 3 mg 04/20/25 03:57 04/20/25 04:24 Midazolam 5mg/Ml 1ml Vial IV 04/20/25 03:58 3 mg ONCE ONE Administration ORDERS Category Date Time Status CT head/brain wo con Stat Cat Scan 04/20/25 03:05 Completed Consult to Case Management [CONS] Routine Cons 04/20/25 04:46 Active CXR --portable [XR chest portable] Stat Exams 04/20/25 03:05 Completed Acetaminophen Stat Lab 04/20/25 03:31 Completed CBC w/Auto Diff [Complete Blood Count Auto Diff] Stat Lab 04/20/25 03:31 Completed CK [Creatine Kinase] Stat Lab 04/20/25 03:31 Completed CMP [Comprehensive Metabolic Panel] Stat Lab 04/20/25 03:31 Completed Complete Blood Count Auto Diff Timed Lab 04/21/25 09:46 Ordered Ethanol [Ethyl Alcohol] Stat Lab 04/20/25 03:31 Completed HCG Qualitative, Serum Stat Lab 04/20/25 03:31 Completed Salicylate Stat Lab 04/20/25 03:31 Completed Trop I [Troponin I] Stat Lab 04/20/25 03:31 Completed Troponin I Q3H Lab 04/20/25 06:15 Ordered Troponin I Q3H Lab 04/20/25 09:15 Ordered UDS [Drug Screen,Urine] Stat Lab 04/20/25 03:40 Completed Urinalysis and Microscopic Stat Lab 04/20/25 03:40 Completed Urine Culture Stat Micro 04/20/25 03:40 Received VBG [Venous Blood Gas] Stat RT 04/20/25 03:05 Completed ECG Request Stat Y 04/20/25 03:05 Ordered Medical Decision Narrative: In summary, this 39-year-old female who admitted to long enforcement of polysubstance use presents to the emergency department today with law enforcement for medical clearance but arrived in the ER agitated, combative, not redirectable, responding to internal stimuli. She was tachycardic but otherwise hemodynamically stable, afebrile, would not participate in exam but did not appear to have any obvious neurologic deficits and was moving all extremities equally while trying to be combative. She did not complain of any pain but that was the limit of the history provided. For patient and staff safety, she was chemically restrained with Haldol and Versed, I was unable to perform a more thorough physical exam which was reassuring and overall unremarkable though patient did have a tampon in place which was removed to prevent toxic shock since it was unclear how long it had been there and how long she may end up being chemically restrained. Differential diagnosis includes but is not limited to intoxication, polysubstance use, since at this point patient is altered, she is going to require broad altered mental status workup to rule out things like intracranial bleed or mass, cardiac pathology, pneumothorax or pneumonia, urinary tract infection, coingestion, metabolic derangement, rhabdo, among others. Ruling out the most morbid conditions drove my assessment. Based on these concerns, I ordered serum labs, CT imaging, cardiac workup, urine studies, test, tox labs. ECG personally interpreted demonstrates normal sinus rhythm, rate 87, normal axis, normal [place] and QTc, no STEMI. Patient is receiving IV fluids. Labs personally reviewed demonstrate no leukocytosis or anemia, normal platelets, VBG with normal pH, normal lactic, CMP with significant hypokalemia, with a little bit of investigation discovered that stimulants including amphetamines can cause changes in the serum potassium concentration including hypokalemia. Patient is receiving IV repletion. Trace elevation in anion gap likely secondary to agitation and poor oral intake while agitated, CK elevated at 226 concerning for very early rhabdo, troponin undetectably low less than 0.01, UA positive for nitrates, however patient only has 5-10 WBCs but the sample was contaminated with 5-10 squamous cells as well. Patient is afebrile so at this time I am not going to treat for infection since I believe this sample was likely contaminated causing the WBCs and since nitrates can be positive for other reasons besides infection including taking medications like Azo and it is unclear whether she took these or not. Tox labs demonstrate negative salicylates and acetaminophen, UDS positive for amphetamines and cocaine, test negative, ethanol negative. I was called back to radiology to review initial chest x-ray. On my personal interpretation patient had a radiopaque foreign body overlying the right breast. With gloves this was removed and was found to just be quarters wrapped in cohen. This was kept with the patient's belongings. After removal of this, chest x-ray was repeated demonstrating no acute intrathoracic abnormality on my personal interpretation. See radiology read for final interpretation. CT head personally interpreted does not demonstrate acute intracranial abnormality, see radiology read for final interpretation. Patient became slightly agitated after radiology studies again and was not able to be redirected so small dose of IV Versed was again administered. She is resting comfortably at this time. At this time I believe patient requires admission for continued IV potassium repletion, monitoring for any progression of rhabdo with trending CK, and metabolization of her polysubstance use. I discussed this case with the hospitalist who graciously accepted the patient. She was admitted in stable condition. Critical Care Critical Care Time Critical Care Time: Yes Attestation: On 04/20/25, the high probability of a clinically significant, sudden or life threatening deterioration of the following system(s) required my full and direct attention, intervention and personal management. The time I documented below is in addition to time spent performing reported procedures but includes the following listed in this critical care notation. Total Time Total Critical Care Time: 35
[2025-04-20] MEDS: MIDAZOLAM 5MG/ML 1ML VIAL 3 MG IV (04:24)
--- NOTE | 2025-04-20 05:08 | P.HP_ITS ---
<Statement entered by Cristian Hein MD - 04/21/25 16:16> Personally evaluated patient and agree with plan of care as outlined by the TRANSMITTER TESTER. History of Present Illness *Admission Date: 04/20/25 *Reason for visit:: Intoxication cocaine meth, possible UTI, hypokalemia *History of present illness: This 39-year-old female was brought into the emergency room by the law enforcement officers. Patient was quite agitated and was needing clearance to be able to take to incarceration. With patient's agitation and stuff the emergency room physician had to use sedation for the patient. Which has worked well. Drug screen found cocaine believe also that she was on methamphetamines. UTI shows some positive leuks but minimal, patient was also hypokalemic this has been replaced. Being able to get a full assessment or history has been impossible. Patient is cardiac and respiratory stable at this time. For this reason we will need to admit the patient to the floor will continue medication as needed if patient is still agitated. Enforcement has been informed of the plan. They have left paperwork for the patient since they were not able to physically explain it to her due to her condition. That the patient will have a court date at that someone from the law enforcement will come back later on today to be able to explain this to her if she is mentally able to understand. Will patient placed on the floor and if she will keep it on we will put her on a continuous pulse ox just to make sure there is no respiratory distress. If needed would give medication to help her control her behavior have p.o. and IM ordered at this time [facility] Disclaimer: The information contained in this section may have been updated after the patient was seen, as this information can be updated by other users. Medical History (Updated 04/20/25 @ 05:17 by Santhosh Taylor APRN) Drug abuse Social History Smoking Status: Unknown if ever smoked alcohol intake: current current occupational status: other Travel in the last 8 weeks?: None Review of Systems Review of Systems Review of systems:: pertinent systems reviewed and negative unless documented below Constitutional Constitutional: Reports as per HPI Eyes Eyes: Reports as per HPI ENT Ears, Nose, Mouth, and Throat: Reports as per HPI *Cardiovascular Cardiovascular: Reports as per HPI *Respiratory Respiratory: Reports as per HPI *Gastrointestinal Gastrointestinal: Reports as per HPI *Genitourinary Genitourinary: Reports as per HPI *Musculoskeletal Musculoskeletal: Reports as per HPI Integumentary/Breasts Skin/Breast: Reports as per HPI *Neurologic Neurologic: Reports as per HPI, Reports behavioral changes and Reports confusion Psychiatric Psychiatric: Reports behavioral changes and Reports confusion Comments: Patient added agitated and aggressive. Patient has been sedated Endocrine Endocrine: Reports as per HPI Hematologic/Lymphatic Hematologic/Lymphatic: Reports as per HPI Allergic/Immunologic Allergic/Immunologic: Reports as per HPI Meds Home Medications and Allergies New Prescriptions to Start Prescriptions: Allergies Allergy/AdvReac Type Severity Reaction Status Date / Time No Known Allergies Allergy Verified 04/20/25 03:15 Exam Data for Last 24 hours Vital signs and Labs for Last 24 Hours: Temp Pulse Resp BP Pulse Ox 98.1 F 95 H 20 117/83 97 04/20/25 02:25 04/20/25 04:00 04/20/25 02:25 04/20/25 04:00 04/20/25 04:00 Laboratory Results - last 24 hr 04/20/25 03:05: VBG pH 7.41, VBG pCO2 39.2, VBG pO2 126.4 H, VBG HCO3 24.2, VBG Total CO2 25.4, VBG O2 Saturation 98.5 H, VBG Base Excess -0.5, VBG Lactic Acid 1.5 04/20/25 03:31: WBC 6.3, RBC 4.19 L, Hgb 13.3, Hct 36.7 L, MCV 87.6, MCH 31.7 H, MCHC 36.2 H, RDW 11.7, Plt Count 170, MPV 11.6 H, Neut % (Auto) 62.2, Lymph % (Auto) 27.7, [place] % (Auto) 7.4, Eos % (Auto) 1.9, Baso % (Auto) 0.6, Neut # (Auto) 3.9, Lymph # (Auto) 1.8, [place] # (Auto) 0.5, Eos # (Auto) 0.1, Baso # (Auto) 0.0, Sodium 136, Potassium 2.4 L*, Chloride 98, Carbon Dioxide 25, Anion Gap 15.4 H, BUN 13, Creatinine 0.70, Estimated Creat Clear 125, Estimated GFR 92, Est GFR ( Amer) 112, Glucose 152 H, Calcium 8.7, Total Bilirubin 0.6, AST 60 H, ALT 67, Alkaline Phosphatase 83, Total Creatine Kinase 226 H, Troponin I < 0.01, Total Protein 7.9, Albumin 4.6, Globulin 3.3 H, Albumin/Globulin Ratio 1.4, Serum HCG, Qual Negative, Salicylates < 1.0 L, Acetaminophen < 10 L, Plasma/Serum Alcohol < 10 04/20/25 03:40: Urine Color Yellow, Urine Appearance Clear, Urine pH 6.0, Ur Specific [place] 1.025, Urine Protein 1+ A, Urine Glucose (UA) Negative, Urine Ketones Trace, Urine Blood Negative, Urine Nitrate Positive A, Urine Bilirubin 1+ A, Urine Urobilinogen >=8.0, Ur Leukocyte Esterase Trace, Urine RBC None, Urine WBC 5-10, Ur Squamous Epith Cells 5-10, Urine Bacteria Trace, Urine Opiates Screen Negative, Urine Methadone Screen Negative, Ur Barbituates Screen Negative, Ur Phencyclidine Scrn Negative, Ur Amphetamines Screen TNP, U Benzodiazepines Scrn Negative, Urine Cocaine Screen Positive H, U Marijuana (THC) Screen Negative I & O for Last 24 hours: Intake & Output 04/17/25 04/18/25 04/19/25 04/20/25 05:59 05:59 05:59 05:59 Weight 165 lb Radiology Reports for the Last 24 Hours: CT of the head showed no obvious acute finding lung chest x-ray showed no acute finding Constitutional Constitutional: severe distress Comments: Patient was agitated and had to be sedated presently sedated in the emergency room. Not able to do full history and physical on the patient *Routine HEENT Exam Head: Present normocephalic and atraumatic Eye: Present other ENT: Present mucous membranes moist Comments: Patient was sleeping on the stretcher breathing regularly. Officer wanted to talk to her tried to stimulate her some patient did not respond to verbal stimuli *Routine Neck Exam Neck: Present supple Comments: No signs of injury to neck *Routine Respiratory Exam Respiratory: Present diminished air movement Comments: Respiration is light but regular. Patient is pink no signs of respiratory distress *Routine Cardiovascular Exam Cardiovascular: Present RRR, Normal S1 and Normal S2 *Routine Abdominal Exam Abdominal: Present soft Comments: Abdominal assessment limited. There was no nausea or vomiting noted *Routine Rectal Exam Rectal:: deferred *Routine Genitalia Exam Genitalia:: deferred *Routine Extremities Exam Extremities: Present pulses intact Comments: There was no sign of injury to arms or legs patient before sedation was noted to being able to stand move arms sit on the stretcher moving her legs being able to sit up at the waist Routine Back/Spine/Pelvis Exam Back/Spine: Present full ROM Comments: No signs of injury patient was able to sit up before being sedated required handcuffs at that point in time to the stretcher *Routine Skin Exam Skin: Present intact Comments: No signs of any significant injury or large bruising *Routine Neurological Exam Neurological: Present alert Comments: Patient was alert when first coming in but was obviously intoxicated being verified with cocaine and meth as probable this is products that the patient use Routine Psychiatric Exam Comments: Intoxicated on illicit drugs not able to assess true psychiatric but presently agitated before sedation H&P: Result Impressions Drug abuser cocaine and methamphetamine Possible urinary tract infection Electrolyte disturbance Imaging and Cardiology CT scan - head: Additional comments: No obvious CT head bleed was seen Assessment and Plan *Assessment and plan (1) Drug abuse: Status: Acute Category: Medical Code(s): F19.10 - Other psychoactive substance abuse, uncomplicated (2) Agitation: Status: Acute Category: Medical Code(s): R45.1 - Restlessness and agitation (3) Hypokalemia: Status: Acute Category: Medical Code(s): E87.6 - Hypokalemia (4) UTI (urinary tract infection): Status: Acute Qualifiers: Urinary tract infection type: site unspecified Hematuria presence: without hematuria Qualified Code(s): N39.0 - Urinary tract infection, site not specified Category: Medical Code(s): N39.0 - Urinary tract infection, site not specified Plan 1. At this point in time we will admit the patient to the floor trying to install continuous pulse ox to monitor respiratory status while sedated. 2. As patient wakes up we will determine if any other medication would be needed to keep her behavior in control if she becomes agitated. 3. Release when patient is no longer of any danger to self unable to do self- care. Will inform patient that she has paperwork that indicates she has a court date
--- NOTE | 2025-04-20 05:22 | PC.NURSE ---
report called to LEW Nash
--- NOTE | 2025-04-20 06:03 | PC.NURSE ---
Pt. was admitted to MED/surg from the ED. Pr. was brought into the ED with law enforcement for public intoxication. When pt. arrived in the ED she was very agitated and uncooperative per report from ED nurse. Pt. was initally handcuffed. Pt. was sedated. IV was placed with ultrasound, labs and CT scan done in the ED. Pt. admitted for observation.Pt. very sedated and unable to answer any admission questions. Pt. has never been here as a patient and there are no records on her. she arouses to voice and light tactile stimuli. Pt. getting potassium replacement that was started in the ED , Unable to place on nurse monitoring as pt. curled in a ball and gets agitated when touched. Resp easy and non labored. call bhakta in reach.
[2025-04-20 08:46] LABS: Troponin I < 0.01 ng/ml (0.00-0.034)
[2025-04-20] MEDS: POTASSIUM CHLORIDE 20MEQ TAB 40 MEQ PO ×2 (13:20→16:34)
[2025-04-20] MEDS: HALOPERIDOL LACTATE 5 MG/ML VIAL IV (13:42)
[2025-04-20 13:53] LABS: Troponin I < 0.01 ng/ml (0.00-0.034)
[2025-04-20 13:58] LABS: Chloride 101 mmol/L (98-107); Potassium 3.3 mmoL/L (3.5-5.1); Sodium 137 mmol/L (136-145)
[2025-04-20 14:01] LABS: Anion Gap 11.3 mEq/L (5-15); Blood Urea Nitrogen 8 mg/dl (7-17); Calcium 8.3 mg/dl (8.4-10.2); Carbon Dioxide 28 mmol/L (22.0-30.0); Creatinine Clearance Estimated 175 mL/min (50-200); Creatinine,Serum 0.50 mg/dl (0.52-1.04); Estimated Glomerular Filt Rate 136 ml/min (>60); GFR (African American) 165 ML/MIN (>60); Glucose 96 mg/dl (74-100)
[2025-04-20] MEDS: CEFTRIAXONE 1 GM 1 GM in 0.9 % SODIUM CHLORIDE 50 ML IV (14:08)
[2025-04-20] MEDS: LACTATED RINGERS 1000ML 1,000 ML 100 ML IV ×2 (15:30→21:04)
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
[2025-04-21] VITALS: PULSE 50
[2025-04-21] MEDS: LACTATED RINGERS 1000ML 1,000 ML 100 ML IV (00:48)
[2025-04-21 04:00] VITALS: BP 135/84; PULSE 86; RESP 16; TEMP 36.7; O2SAT 99; BMI 26.9
--- NOTE | 2025-04-21 04:27 | PC.NURSE ---
Pt A&O x3 (Person, Time, and Situation). Pt is on RA. Pt has not been combative or showed any unwillingness to follow direction. Pt has LR infusding @ 100 mls/hr. Pt not voicing any concerns at this time. Pt resting w/ call light in reach. Plan of care ongoing.
[2025-04-21 07:37] LABS: Hematocrit 37.4 % (37.0-47.0); Hemoglobin 12.6 g/dL (12.2-16.2); Immature Granulocytes % 0.3 %; Mean Corpuscular HGB Conc 33.7 g/dL (31.8-35.4); Mean Corpuscular Hemoglobin 31.0 pg (27.0-31.2); Mean Corpuscular Volume 91.9 fl (81-99); Nucleated Red Blood Cells % 0 %; Platelet Count 156 K/mm3 (142-424); Red Blood Count 4.07 M/mm3 (4.20-5.40); Red Cell Distribution Width-SD 40.9 fL; White Blood Count 6.5 K/mm3 (4.8-10.8)
[2025-04-21 07:48] LABS: Alanine Aminotransferase 51 U/L (12-78); Albumin Level 3.7 g/dl (3.5-5.0); Albumin/Globulin Ratio 1.4 (1.1-1.8); Alkaline Phosphatase 72 U/L (38-126); Anion Gap 14.8 mEq/L (5-15); Aspartate Amino Transferase 62 U/L (14-36); Bilirubin,Total 0.5 mg/dl (0.2-1.3); Blood Urea Nitrogen 5 mg/dl (7-17); Calcium 8.8 mg/dl (8.4-10.2); Carbon Dioxide 26 mmol/L (22.0-30.0); Chloride 102 mmol/L (98-107); Creatine Kinase 360 U/L (30-135); Creatinine Clearance Estimated 161 mL/min (50-200); Creatinine,Serum 0.50 mg/dl (0.52-1.04); Estimated Glomerular Filt Rate 136 ml/min (>60); GFR (African American) 165 ML/MIN (>60); Globulin 2.7 g/dL (1.3-3.2); Glucose 83 mg/dl (74-100); Potassium 3.8 mmoL/L (3.5-5.1); Sodium 139 mmol/L (136-145); Total Protein,Serum 6.4 g/dl (6.3-8.2)
[2025-04-21 07:56] LABS: Magnesium 1.5 mg/dl (1.6-2.3)
[2025-04-21 07:58] VITALS: BP 137/72; PULSE 67; RESP 17; TEMP 36.3; O2SAT 98
[2025-04-21 08:15] LABS: Thyroid Stimulating Hormone 0.25 uIU/mL (0.465-4.68)
--- NOTE | 2025-04-21 09:51 | EXP.DC.SUM ---
General Admission date:: 04/20/25 Discharge date: 04/21/25 HPI HPI HPI: This 39-year-old female was brought into the emergency room by the law enforcement officers. Patient was quite agitated and was needing clearance to be able to take to incarceration. With patient's agitation and stuff the emergency room physician had to use sedation for the patient. Which has worked well. Drug screen found cocaine believe also that she was on methamphetamines. UTI shows some positive leuks but minimal, patient was also hypokalemic this has been replaced. Being able to get a full assessment or history has been impossible. Patient is cardiac and respiratory stable at this time. For this reason we will need to admit the patient to the floor will continue medication as needed if patient is still agitated. Enforcement has been informed of the plan. They have left paperwork for the patient since they were not able to physically explain it to her due to her condition. That the patient will have a court date at that someone from the law enforcement will come back later on today to be able to explain this to her if she is mentally able to understand. Will patient placed on the floor and if she will keep it on we will put her on a continuous pulse ox just to make sure there is no respiratory distress. If needed would give medication to help her control her behavior have p.o. and IM ordered at this time Exam Data for Last 24 hours Vital signs and Labs for Last 24 Hours: Temp Pulse Resp BP Pulse Ox O2 Del Method 97.4 F L 67 17 137/72 98 Room Air 04/21/25 07:58 04/21/25 07:58 04/21/25 07:58 04/21/25 07:58 04/21/25 07:58 04/21/25 07:58 Laboratory Results - last 24 hr 04/20/25 03:31: HIV Ag/Ab Combo Qual Negative 04/20/25 13:16: Sodium 137, Potassium 3.3 L D, Chloride 101, Carbon Dioxide 28, Anion Gap 11.3, BUN 8 D, Creatinine 0.50 L D, Estimated Creat Clear 175, Estimated GFR 136, Est GFR ( Amer) 165 D, Glucose 96 D, Calcium 8.3 L, Troponin I < 0.01 04/21/25 06:37: WBC 6.5, RBC 4.07 L, Hgb 12.6, Hct 37.4, MCV 91.9, MCH 31.0, MCHC 33.7, RDW 12.2, Plt Count 156, MPV 12.2 H, Neut % (Auto) 52.2, Lymph % (Auto) 38.2, [place] % (Auto) 6.2, Eos % (Auto) 2.6, Baso % (Auto) 0.5, Neut # (Auto) 3.4, Lymph # (Auto) 2.5, [place] # (Auto) 0.4, Eos # (Auto) 0.2, Baso # (Auto) 0.0, Sodium 139, Potassium 3.8, Chloride 102, Carbon Dioxide 26, Anion Gap 14.8, BUN 5 L D, Creatinine 0.50 L, Estimated Creat Clear 161, Estimated GFR 136, Est GFR ( Amer) 165, Glucose 83, Calcium 8.8, Magnesium 1.5 L, Total Bilirubin 0.5, AST 62 H, ALT 51, Alkaline Phosphatase 72, Total Creatine Kinase 360 H D, Total Protein 6.4, Albumin 3.7 D, Globulin 2.7, Albumin/Globulin Ratio 1.4, TSH 0.25 L I & O for Last 24 hours: Intake & Output 04/18/25 04/19/25 04/20/25 04/21/25 23:59 23:59 23:59 23:59 Intake Total 765 / 765 Output Total 150 / 150 0 / 0 Balance 615 / 615 0 / 0 Weight 74.843 kg 68.765 kg Microbiology Reports for the Last 24 Hours: Microbiology 04/20/25 03:40 Urine,Clean Catch Urine Culture - Preliminary Constitutional Constitutional: no acute distress and cooperative *Routine HEENT Exam Head: Present normocephalic Eye: Present EOMI and PERRL ENT: Present mucous membranes moist *Routine Neck Exam Neck: Present supple; Absent lymphadenopathy *Routine Respiratory Exam Respiratory: Present CTA bilaterally *Routine Cardiovascular Exam Cardiovascular: Present RRR *Routine Abdominal Exam Abdominal: Present soft and normoactive bowel sounds; Absent tenderness *Routine Extremities Exam Extremities: Absent cyanosis, clubbing or edema *Routine Skin Exam Skin: Present warm; Absent rash *Routine Neurological Exam Neurological: Present alert Results Data Completed and Pending Labs on day of discharge: Labs from last 24 hours 04/21/25 04/20/25 04/20/25 06:37 13:16 03:31 WBC 6.5 RBC 4.07 L Hgb 12.6 Hct 37.4 MCV 91.9 MCH 31.0 MCHC 33.7 RDW 12.2 Plt Count 156 MPV 12.2 H Neut % (Auto) 52.2 Lymph % (Auto) 38.2 [place] % (Auto) 6.2 Eos % (Auto) 2.6 Baso % (Auto) 0.5 Neut # (Auto) 3.4 Lymph # (Auto) 2.5 [place] # (Auto) 0.4 Eos # (Auto) 0.2 Baso # (Auto) 0.0 Sodium 139 137 Potassium 3.8 3.3 L D Chloride 102 101 Carbon Dioxide 26 28 Anion Gap 14.8 11.3 BUN 5 L D 8 D Creatinine 0.50 L 0.50 L D Estimated Creat Clear 161 175 Estimated GFR 136 136 Est GFR ( Amer) 165 165 D Glucose 83 96 D Calcium 8.8 8.3 L Magnesium 1.5 L Total Bilirubin 0.5 AST 62 H ALT 51 Alkaline Phosphatase 72 Total Creatine Kinase 360 H D Troponin I < 0.01 Total Protein 6.4 Albumin 3.7 D Globulin 2.7 Albumin/Globulin Ratio 1.4 TSH 0.25 L HIV Ag/Ab Combo Qual Negative Preliminary micro results at discharge 04/20/25 03:40 Urine Culture - Preliminary Urine,Clean Catch DS: Diagnosis Discharge Diagnosis (1) Hypokalemia: Status: Acute Code(s): E87.6 - Hypokalemia (2) Altered mental status: Status: Acute Code(s): R41.82 - Altered mental status, unspecified (3) Polysubstance abuse: Status: Acute Code(s): F19.10 - Other psychoactive substance abuse, uncomplicated (4) UTI (urinary tract infection): Status: Acute Code(s): N39.0 - Urinary tract infection, site not specified Qualifiers: Hematuria presence: without hematuria Urinary tract infection type: site unspecified Qualified Code(s): N39.0 - Urinary tract infection, site not specified (5) Hypomagnesemia: Status: Acute Code(s): E83.42 - Hypomagnesemia Meds Home Medications and Allergies Home Medications ?Medication ?Instructions ?Recorded ?Confirmed ?Type No Known Home Medications 04/20/25 04/20/25 History New Prescriptions to Start Prescriptions: Allergies Allergy/AdvReac Type Severity Reaction Status Date / Time No Known Allergies Allergy Verified 04/20/25 03:15 Discharge Plan Disposition Condition: Good Follow up Plan Prescriptions/Medication Reconciliation: No Action No Known Home Medications Problem Reconciliation Problems Reviewed?: Yes Patient Discharge Instructions ACTIVITY: Continue current activity DIET: continue same diet Patient Instructions: DI for Urinary Tract Infection (UTI), DI for Hypokalemia, DI for Substance Use Disorder, DI for Altered Mental Status Print Language: Malagasy Providers Primary Care Provider: Provider,Referral Admit Provider: Cristian Hein Attending Provider: Cristian Hein
[2025-04-21] MEDS: MAGNESIUM SULFATE IN WATER 2 GM/50 ML PIGGYBACK IV ×2 (10:23→11:33)
[2025-04-21] MEDS: 0.9 % SODIUM CHLORIDE 1000ML 1,000 ML 150 ML IV (10:23)
[2025-04-21] MEDS: CEFTRIAXONE 1 GM 1 GM in 0.9 % SODIUM CHLORIDE 50 ML IV (13:09)
[2025-04-21 14:18] LABS: Anion Gap 15.1 mEq/L (5-15); Blood Urea Nitrogen 4 mg/dl (7-17); Calcium 8.5 mg/dl (8.4-10.2); Carbon Dioxide 26 mmol/L (22.0-30.0); Chloride 102 mmol/L (98-107); Creatine Kinase 366 U/L (30-135); Creatinine Clearance Estimated 161 mL/min (50-200); Creatinine,Serum 0.50 mg/dl (0.52-1.04); Estimated Glomerular Filt Rate 136 ml/min (>60); GFR (African American) 165 ML/MIN (>60); Glucose 118 mg/dl (74-100); Hematocrit 38.7 % (37.0-47.0); Hemoglobin 13.3 g/dL (12.2-16.2); Immature Granulocytes % 0.5 %; Magnesium 2.6 mg/dl (1.6-2.3); Mean Corpuscular HGB Conc 34.4 g/dL (31.8-35.4); Mean Corpuscular Hemoglobin 31.3 pg (27.0-31.2); Mean Corpuscular Volume 91.1 fl (81-99); Nucleated Red Blood Cells % 0 %; Platelet Count 162 K/mm3 (142-424); Potassium 4.1 mmoL/L (3.5-5.1); Red Blood Count 4.25 M/mm3 (4.20-5.40); Red Cell Distribution Width-SD 40.3 fL; Sodium 139 mmol/L (136-145); White Blood Count 6.4 K/mm3 (4.8-10.8)
[2025-04-21] MEDS: diazePAM 10MG/2ML SYRINGE 2.5 MG IV (15:14)
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
[2025-04-21 15:58] LABS: Free T4 (Free Thyroxine) 1.85 ng/dl (0.78-2.19)
[2025-04-21 16:00] VITALS: BP 138/67; PULSE 77; RESP 17; O2SAT 100
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
--- NOTE | 2025-04-21 18:32 | PC.NURSE ---
Pt alert and oriented x4. Pt appropriate and cooperative. Pt c/o of garbled speech d/t inability to speak. Physician aware of pts symptoms. Magnesium protocol initiated d/t magnesium level 1.5. Peer support consulted. Pt voiced concerns of anxiety, physician ordered one time dose of Valium. Pt stated she was okay with being discharged.
--- NOTE | 2025-04-21 18:32 | PEERSUPPORT ---
Peer Support Note Patient Information Patient Information: DOS: 04/21/2025 ? Drug(s) of Choice: Meth (snorting) ? Last Use:04/20/2025 ? UDS Positive: Cocaine ? Use Hx: Started using as a teenager, progressed to harder drugs throughout her adolescent years and into adult [place]. ? Narcan/Self: 5+ ? Narcan/Others:5+ ? Current Use: Meth use since being released from group home in [facility] one week ago. ? ? Previous MAT/MOUD: [facility] ? Current MAT/MOUD: None since being released one week ago. ? Desire for MAT/MOUD: Interested in [facility], pt to report to [facility] after contacting insurance [employer]. ? Referrals to [facility]- [place], [place] or [place], [place] locations ? Previous Treatment: 5+ Inpatient treatment facilities- not remembering the names at this time. ? Longest Length of Sobriety: 6 Months while incarcerated ? Support System: -Friend Kelly- ? Legal Issues: Probation conditions ? Potential Barriers: -Lack of connection to recovery -No insurance -Transportation/No Licenses -Pt reports anxiety, no medication -No PCP -Unsecured housing ? Insurance: None ? Harm reduction: -Connection to [facility] -Education on [facility] and process of Treatment/Recovery -Contact for [facility] for insurance & [employer]. -Naloxone take home dose/Education on Risk of overdose -Treatment referrals/Resources ; [facility], [address]88 Hotline ? Motivation for Change: ? Pt motivated during majority of the day to go to [facility] for treatment of substance use disorder. She reports having panic attacks, from not being able? to talk feeling as if her tongue is twisted or tied. She says this has never happened. She does admit to being up for multiple nights while using meth, and does not want to continue to use. ? Pt had relief from the panic feeling when given valium, and shortly after waking up she had issues with talking and same feeling in her tongue. ? Pt says she is not able to go to [facility] today, and will have her friend Kelly come pick her up. ? Pt says Kelly is supportive of her recovery and is a safe place for her to go to. ? Pt reports a check she is waiting on to arrive and then she will commit to inpatient treatment if she feels it is needed. ? ? Ps shared personal experience relevant to situation placing priority on sobriety and cost vs benefit to continued use. ? Pt receptive, accepting resources and treatment referrals but having difficulty with panicking due to her issues with her tongue and ability to talk. Pt agrees to follow up phone calls with [facility]. ? Plan of Action: -Refrain from using and/or drinking any substances or chemicals. -Take medication as prescribed -Follow up with peer support -Follow through with activating insurance
--- NOTE | 2025-04-23 08:07 | PC.NURSE ---
urine culture results forwarded to hospitalist.
--- NOTE | 2025-04-23 10:46 | SW/DCPLANNER ---
Was not able to call patient due to not the right number that was left and no other number to call. Mario Quevedo
[2025-04-24 14:18] LABS: Amphetamine (GC/MS) >3000 ng/mL (Cutoff=500); Methamphetamine (GC/MS) >3000 ng/mL (Cutoff=500)
[2025-04-25 01:08] LABS: Mycoplasma genitalium, NAA Negative (Negative); Neisseria gonorrhoeae, NAA Negative (Negative)
--- NOTE | 2025-04-25 11:06 | PC.NURSE ---
pts urine culture results sent to the hospitalist as she was admitted.
== END 2025-04-21 18:42 | disposition home or self-care (01) ==
LOC: ER 02:20 → 2ND 06:02
PROVIDERS: Nurse Practitioner Family; Admitting Provider Student in an Organized Health Care Education/Training Program; Emergency Provider Emergency Medicine; Visit Provider Student in an Organized Health Care Education/Training Program
DX: F19.10 Other psychoactive substance abuse, uncomplicated (principal); F14.959 Cocaine use, unspecified with cocaine-induced psychotic disorder, unspecified; R41.82 Altered mental status, unspecified; R45.1 Restlessness and agitation; N39.0 Urinary tract infection, site not specified; E87.6 Hypokalemia; E83.42 Hypomagnesemia; M62.82 Rhabdomyolysis; F10.90 Alcohol use, unspecified, uncomplicated
CPT/HCPCS: 36415; 70450; 71045; 80048; 80053; 80074; 80307; 80320; 80324; 80329; 81001; 82550; 82803; 83735; 84439; 84443; 84484; 84703; 85025; 87086; 87088; 87186; 87389; 87491; 87563; 87591; 87661; 93005; 96361; 96365; 96366; 96372; 96375; 96376; 99285; G0378; J0696; J1630; J2250; J3360; J3475; J3480; J7030; J7120